=== PATIENT | male | born 1960 | race Caucasian/White ===

== ENCOUNTER → 2018-11-15 | Outpatient (REF) | payer OTHER | LOC: M LAB LCGH 13:52 | PROVIDERS: ATTEND Surgery | DX: K21.9 Gastro-esophageal reflux disease without esophagitis (principal); Z12.11 Encounter for screening for malignant neoplasm of colon; D50.9 Iron deficiency anemia, unspecified ==

== ENCOUNTER → 2019-09-16 | Outpatient (CLI) | payer OTHER ==
[~2019-09-16] MED LIST: LISI-538 PO; OMEP-218 PO; TOPR50TA PO
--- NOTE | 2019-09-16 12:49 | REP ---
CT STUDY OF THE CHEST WITHOUT CONTRAST: Low-dose screening exam. HISTORY: Personal history of nicotine dependence. No comparison images. CT FINDINGS: Digital preliminary animal skinner radiograph is unremarkable. The lung thomas are clear. There is no evidence of pulmonary mass lesion or infiltrate. There is a small nodular opacity in the right upper lobe 4 mm in diameter displayed on page 37 of 106 in series 201 of today's study. No other abnormal pulmonary nodule density is seen. Study is otherwise unremarkable. Some vascular calcification is seen. IMPRESSION: 4 mm nodule right upper lobe. Lung RADS category 2 findings. Repeat screening chest CT study to recommend in 12 months. Electronically Signed by Brent Hsieh MD 09/16/2019 06:40 P
== END ==
LOC: M RAD 09:12
PROVIDERS: ATTEND Internal Medicine Hematology & Oncology
DX: Z12.2 Encounter for screening for malignant neoplasm of respiratory organs (principal); Z87.891 Personal history of nicotine dependence; R91.1 Solitary pulmonary nodule

== ENCOUNTER → 2020-04-23 | Outpatient (CLI) | payer OTHER ==
--- NOTE | 2020-04-26 09:38 | REP ---
NONCONTRAST CHEST CT CLINICAL: Follow-up right upper lobe nodule. TECHNIQUE: Axial noncontrast images from the thoracic inlet to the upper abdomen with coronal and sagittal reformations. COMPARISONS: 09/16/2019, 10/27/2016. FINDINGS: The 4-mm noncalcified right upper lobe nodule remains unchanged as compared from 09/16/2019, as well as outside examination dated 10/27/2016, and requires no further investigation. The lung thomas are otherwise well-aerated and without new significant consolidation, nodule, or mass lesion. Subtle dependent changes in the posterior right lung noted. No effusion. No pneumothorax. Tracheobronchial tree is patent. No obvious axillary, hilar, or mediastinal adenopathy. Visualized portions of the thyroid gland appear normal. Atherosclerotic changes to the thoracic aorta and coronary arteries noted without aortic aneurysm or cardiomegaly. No pericardial effusion. Surrounding musculoskeletal structures are intact. Limited upper abdomen demonstrates normal bilateral adrenal glands along with fatty infiltration to the liver and small stable splenule. IMPRESSION: Previously noted right upper lobe nodule remains stable compared through 2017 and requires no further investigation. No significant pulmonary parenchymal process appreciated. MTDD
== END ==
LOC: M RAD 08:12
PROVIDERS: ATTEND Internal Medicine Hematology & Oncology
DX: R91.1 Solitary pulmonary nodule (principal)

== ENCOUNTER → 2021-03-06 | Outpatient (CLI) | payer OTHER ==
[~2021-03-06] MED LIST changes: +IBUP-1022 PO; -LISI-538 PO; +LISI20TA33 PO
--- NOTE | 2021-03-06 16:18 | REP ---
INDICATION: SCREENING. COMPARISON: Multiple the latest 04/23/2020 standard helical scan technique without contrast TECHNIQUE: Axial noncontrast images from the thoracic inlet to the upper abdomen using low-dose lung screening technique (LDCT). As per the protocol only lung window images were sent to the read station for interpretation. FINDINGS: There is mild biapical pleuroparenchymal scarring status quo. No new abnormal nodules, masses, or opacities have developed. Grossly, the mediastinum and pulmonary sinai are unchanged. Grossly, the imaged upper abdomen and imaged osseous structures are unchanged. IMPRESSION: Stable lung rads category 2 CT examination of the chest. Follow-up as per the revised Fleischner society criteria. <Electronically signed by Julio Harmon > 03/06/21 [id number]
== END ==
LOC: M RAD 15:20
PROVIDERS: ATTEND Internal Medicine Medical Oncology
DX: Z12.2 Encounter for screening for malignant neoplasm of respiratory organs (principal); Z87.891 Personal history of nicotine dependence; J98.4 Other disorders of lung

== ENCOUNTER → 2022-05-08 | Outpatient (CLI) | payer OTHER ==
[~2022-05-08] MED LIST changes: +METF500T13 PO; +OMEP-173 PO; -OMEP-218 PO
== END ==
LOC: M RAD 09:48
PROVIDERS: ATTEND Internal Medicine Medical Oncology
DX: Z12.2 Encounter for screening for malignant neoplasm of respiratory organs (principal); D64.9 Anemia, unspecified; Z87.891 Personal history of nicotine dependence

== ENCOUNTER → 2022-06-18 | Outpatient (REF) | payer OTHER | LOC: M SFHCDERM 09:15 | PROVIDERS: ATTEND Physician Assistant | DX: R21 Rash and other nonspecific skin eruption (principal) ==

== ENCOUNTER → 2023-11-25 | Outpatient (CLI) | payer OTHER ==
[~2023-11-25] MED LIST changes: +LEVOTAB10
[2023-11-25 17:29] LABS: BASO % 0.4 % (0.0-1.0); EOS # 0.1 10^3/uL (0.0-0.5); EOS % 2.2 % (0.0-3.0); HEMATOCRIT 37.4 % (42.0-52.0); HEMOGLOBIN 12.9 g/dl (13.5-17.5); LYMPH # 1.5 10^3/uL (1.5-5.0); LYMPH % 26.1 % (24.0-44.0); MEAN CORPUSCULAR HEMOGLOBIN 33.1 pg (27.0-33.0); MEAN CORPUSCULAR HGB CONC 34.5 g/dl (32.0-36.5); MEAN CORPUSCULAR VOLUME 95.9 fl (80.0-96.0); MONO # 0.5 10^3/uL (0.0-0.8); MONO % 8.1 % (2.0-8.0); NEUTROPHILS # 3.5 10^3/uL (1.5-8.5); PLATELET COUNT, AUTOMATED 169 10^3/uL (150-450); WHITE BLOOD COUNT 5.6 10^3/uL (4.0-10.0)
[2023-11-25 18:00] LABS: ALBUMIN 4.3 G/DL (3.2-5.2); ALKALINE PHOSPHATASE 46 U/L (46-116); ALT/SGPT 97 U/L (7.0-40); AST/SGOT 40 U/L (<34); BILIRUBIN,TOTAL 0.6 MG/DL (0.3-1.2); BLOOD UREA NITROGEN 20 MG/DL (9-23); CALCIUM LEVEL 9.3 MG/DL (8.3-10.6); CARBON DIOXIDE LEVEL 22 MMOL/L (20-31); CHLORIDE LEVEL 105 MMOL/L (98-107); CREATININE FOR GFR 1.01 MG/DL (0.70-1.30); GLOMERULAR FILTRATION RATE > 60.0 (>49); GLUCOSE, FASTING 187 MG/DL (74-106); POTASSIUM SERUM 4.3 MMOL/L (3.5-5.1); SODIUM LEVEL 137 MMOL/L (136-145)
[2023-11-25 18:03] LABS: FERRITIN 171.7 NG/ML (10.5-307.3)
== END ==
LOC: M LAB 17:04
PROVIDERS: ATTEND Internal Medicine Medical Oncology
DX: D64.9 Anemia, unspecified (principal)

== ENCOUNTER → 2024-01-04 | Outpatient (CLI) | payer OTHER | LOC: M RAD 08:48 | PROVIDERS: ATTEND Internal Medicine Medical Oncology | DX: Z12.2 Encounter for screening for malignant neoplasm of respiratory organs (principal); Z87.891 Personal history of nicotine dependence ==

== ENCOUNTER → 2025-04-06 | Outpatient (CLI) | payer OTHER ==
[~2025-04-06] MED LIST changes: -IBUP-1022 PO; +IBUP600T42 PO; +ROSU40TA81
== END ==
LOC: M RAD 07:48
PROVIDERS: ATTEND Internal Medicine Hematology & Oncology
DX: Z12.2 Encounter for screening for malignant neoplasm of respiratory organs (principal); Z87.891 Personal history of nicotine dependence